=== PATIENT | male | born 1990 | race American Indian/Alaskan Native ===

== ENCOUNTER 2020-06-07 20:06 | Emergency (ER) | payer SELFPAY ==
[2020-06-07] MEDS ORDERED: ZIPRASIDONE MESYLATE 20 MG VIAL IM ONE (21:14)
--- NOTE | 2020-06-07 21:14 | Emergency Department Report ---
ED Psych HPI - General Chief Complaint: Medical Clearance Stated Complaint: PSYCH EVALUATION Time Seen by Provider: 06/07/20 21:01 Source: patient Mode of arrival: Ambulatory Limitations: No Limitations - History of Present Illness Initial Comments: Patient is a 30-year-old male that presents emergency room with complaints of wanting to get checked out. Patient states that his parents thought he was acting weird so he asked him to come to the hospital. Patient states that his parents called the police to bring him to the hospital because of the way he was acting. Patient states that he has been getting close to [facility]. Patient states he has been seeing Myles and reading the Bible. Patient states that he got into a verbal conversation with another patient in the waiting room. Patient states he was cutting the grass and filling in the snakes holes because the snakes holes were present the devil and he was trying to fill them and so that his mom did not fall in the holes. Patient states that he has some electrolytes and took a shower. Patient states that when he came out of the shower the police were magically in his house. Patient states that he lives with his parents. Patient states he been having audio and visual hallucinations. Patient states that he reads a lot and is not much into watching TV because it is too many voices. Patient denies recent travel. Patient denies recent international travel. Patient denies exposure to the novel coronavirus. Patient denies sick contacts. Patient denies fever and chills. Patient denies cough. Patient denies diarrhea. Patient denies coming in contact with anybody with symptoms of the novel coronavirus. MD Complaint: other -: Sudden Associated Psychiatric Symptoms: racing thoughts, auditory hallucinations, visual hallucinations, delusions History of same: No Quality: constant Improves With: none Worsens With: none Context: significant life stressor Associated Symptoms: denies other symptoms. denies: confusion, headache, shortness of breath, nausea, vomiting, syncope, insomnia Treatments Prior to Arrival: none - Related Data Allergies Allergy/AdvReac Type Severity Reaction Status Date / Time No Known Allergies Allergy Unverified 06/07/20 21:05 ED Review of Systems ROS: Stated complaint: PSYCH EVALUATION Other details as noted in HPI Constitutional: denies: chills, fever Eyes: denies: eye pain, eye discharge, vision change ENT: denies: ear pain, throat pain Respiratory: denies: cough, shortness of breath, wheezing Cardiovascular: denies: chest pain, palpitations Endocrine: no symptoms reported Gastrointestinal: denies: abdominal pain, nausea, diarrhea Genitourinary: denies: urgency, dysuria Musculoskeletal: denies: back pain, joint swelling, arthralgia Skin: denies: rash, lesions Neurological: denies: headache, weakness, paresthesias Psychiatric: auditory hallucinations, visual hallucinations. denies: anxiety, depression Hematological/Lymphatic: denies: easy bleeding, easy bruising ED Past Medical Hx - Past Medical History Previous Medical History?: Yes Hx Asthma: Yes - Surgical History Past Surgical History?: No - Family History Family history: no significant - Social History Smoking Status: Current Every Day Smoker Substance Use Type: Marijuana ED Physical Exam - General Limitations: No Limitations General appearance: alert, in no apparent distress - Head Head exam: Present: atraumatic, normocephalic - Eye Eye exam: Present: normal appearance - ENT ENT exam: Present: mucous membranes moist - Neck Neck exam: Present: normal inspection - Respiratory Respiratory exam: Present: normal lung sounds bilaterally. Absent: respiratory distress - Cardiovascular Cardiovascular Exam: Present: regular rate, normal rhythm. Absent: systolic murmur, diastolic murmur, rubs, gallop - GI/Abdominal GI/Abdominal exam: Present: soft, normal bowel sounds - Rectal Rectal exam: Present: deferred - Extremities Exam Extremities exam: Present: normal inspection - Back Exam Back exam: Present: normal inspection - Neurological Exam Neurological exam: Present: alert, oriented X3 - Psychiatric Psychiatric exam: Present: flat affect - Expanded Psychiatric Exam Expanded Focused psych exam: Present: internal stimuli, delusional, flight of ideas, loose associations - Skin Skin exam: Present: warm, dry, intact, normal color. Absent: rash ED Course Vital Signs 06/07/20 06/08/20 06/08/20 21:00 02:29 08:20 Temperature 98.8 F 98.6 F 98.5 F Pulse Rate 81 70 67 Respiratory 16 18 20 Rate Blood Pressure 131/85 138/77 149/84 [Right] O2 Sat by Pulse 97 97 100 Oximetry - Reevaluation(s) Reevaluation #1: Initial evaluation done. Patient placed on ER hold. Patient agrees with plan of care. 06/07/20 21:14 Reevaluation #2: I discussed all results and clinical findings with patient. I discussed plan of care with patient. Patient agrees with plan of care. Patient is medically cleared. Patient will remain in the ER as an ER hold. Patient's final disposition will come from our psychiatry team. 06/07/20 23:47 ED Medical Decision Making - Lab Data Result diagrams: 06/07/20 21:44 06/07/20 21:44 - Medical Decision Making Patient is a 30-year-old male that presents emergency room with psychosis symptoms. Patient having hallucinations and racing thoughts and delusions and paranoia. Patient having tangential thoughts. After initial evaluation, the patient was placed on a ER hold. Patient will require a mental health evaluation. Patient had labs done. Patient's labs are essentially unremarkable. Patient is medically cleared. Patient's final disposition will come from our mental health and psychiatry team. - Differential Diagnosis Acute psychosis, medical clearance for psychiatric admission. Critical care attestation.: If time is entered above; I have spent that time in minutes in the direct care of this critically ill patient, excluding procedure time. ED Disposition Clinical Impression: Acute psychosis, Hypokalemia Disposition: [id number] PSY HOSP/PSY UNIT Is pt being admited?: No Does the pt Need Aspirin: No Condition: Stable Referrals: PRIMARY CARE, [Primary Care Provider] - 2-3 Days Time of Disposition: 23:47
[2020-06-07 21:55] LABS: Basophils # (Auto) 0.1 K/mm3 (0.0-0.1); Basophils % (Auto) 0.7 % (0.0-1.8); Eosinophils # (Auto) 0.1 K/mm3 (0.0-0.4); Eosinophils % (Auto) 0.9 % (0.0-4.3); Hematocrit 43.7 % (35.5-45.6); Lymphocytes # (Auto) 2.6 K/mm3 (1.2-5.4); Lymphocytes % (Auto) 27.5 % (13.4-35.0); Mean Corpuscular HGB Conc 34 % (32-34); Mean Corpuscular Volume 88 fl (84-94); Monocytes # (Auto) 1.1 K/mm3 (0.0-0.8); Monocytes % (Auto) 11.6 % (0.0-7.3); Platelet Count 322 K/mm3 (140-440); Red Blood Count 4.96 M/mm3 (3.65-5.03); Red Cell Distribution Width 13.6 % (13.2-15.2)
[2020-06-07 21:58] LABS: Amphetamine Screen,Urine PRESUMPTIVE NEGATIVE; Benzodiazepines Screen,Urine PRESUMPTIVE NEGATIVE; Cannabinoid Screen,Urine PRESUMPTIVE POSITIVE; Cocaine Screen,Urine PRESUMPTIVE NEGATIVE; Methadone Screen,Urine PRESUMPTIVE NEGATIVE; Opiate Screen,Urine PRESUMPTIVE NEGATIVE
[2020-06-07 21:59] LABS: Bilirubin,Urine NEG (Negative); Blood,Urine NEG (Negative); Color,Urine Yellow (Yellow); Hyaline Casts,Urine 1 /LPF; Mucus,Urine 2+ /HPF; Protein,Urine <15 mg/dL mg/dL (Negative); Urobilinogen,Urine < 2.0 mg/dL (<2.0)
[2020-06-07 22:20] LABS: Alanine Aminotransferase 18 units/L (7-56); Albumin 4.8 g/dL (3.9-5); BUN/Creatinine Ratio 8; Blood Urea Nitrogen 7 mg/dL (9-20); Calcium 10.3 mg/dL (8.4-10.2); Hemolysis Index 4
[2020-06-08 08:21] VITALS: BP 149/84
[2020-06-08] MEDS ORDERED: ZIPRASIDONE MESYLATE 20 MG VIAL IM ONE (11:40)
[2020-06-08] MEDS ORDERED: LORazepam 2 MG/ML VIAL IM ONE (11:40)
--- NOTE | 2020-06-08 12:58 | Consultation ---
History of Present Illness - Reason for Consult Consult date: 06/08/20 Reason for consult: MHE Requesting physician: EUNICE CALLE - History of Present Psychiatric Illness Per ED Provider: Patient is a 30-year-old male that presents emergency room with complaints of wanting to get checked out. Patient states that his parents thought he was acting weird so he asked him to come to the hospital. Patient states that his parents called the police to bring him to the hospital because of the way he was acting. Patient states that he has been getting close to [employer]. Patient states he has been seeing Myles and reading the Bible. Patient states that he got into a verbal conversation with another patient in the waiting room. Patient states he was cutting the grass and filling in the snakes holes because the snakes holes were present the devil and he was trying to fill them and so that his mom did not fall in the holes. Patient states that he has some electrolytes and took a shower. Patient states that when he came out of the shower the police were magically in his house. Patient states that he lives with his parents. Patient states he been having audio and visual hallucinations. Patient states that he reads a lot and is not much into watching TV because it is too many voices. PSYCH HPI Patient seen irritated in hallway way, says I should go look at his chart and not talk to him, patient began walking out of facility. Staff notified. PAST PSYCHIATRIC HISTORY Diagnoses: Suicide attempts or Self-harm behavior: Prior psychiatric hospitalizations: Substance Abuse history: Previous psychiatric medications tried: Outpatient treatment: PAST MEDICAL HISTORY: Family Psychiatric History: None reported or documented SOCIAL HISTORY Marital Status: Living Arrangements: Employment Status: Access to guns/weapons: Education: History of Abuse: Legal History: MENTAL STATUS EXAMINATION General Appearance and Behavior: Age appropriate, good hygiene, wearing appropriate clothes, poor eye contact, uncooperative irritable with questioning. Cooperation: Threatening, and Guarded Psychomotor Behavior: Psychomotor agitation Mood: Affect and affective range: Angry, dysthymic,irritable, Thought Process: , Illogical Thought Content:Illogical Speech: pressured, loud volume Intellectual Functioning: Average Suicidal Ideation: Denies SI Homicidal Ideation: Denies HI Impulse Control: Impaired Insight and Judgment: N Limited insight and judgment Memory: Attention: Divided attention impaired Orientation: Alert, oriented, anxious Diagnoses: Assessment and Plan - Psychiatric problem (1) Behavior concern in adult Current Visit: Yes Status: Acute Treatment Plan MEDICATIONS: Risks, benefits and alternatives of medications discussed with the patient, questions answered and consent obtained from patient. PSYCHOTHERAPY: Supportive psychotherapy provided MEDICAL: Per primary team DELIRIUM PRECAUTIONS: Please re-orient patient frequently, keep lights on during the day, and minimize benzodiazepines and opiates as these medications could wo rsen patient's confusion. Patient walked off prior assessment being completed and not on a 1013 status Thank you for the consult. Please contact with any questions and/or concerns. Medications and Allergies Allergies Allergy/AdvReac Type Severity Reaction Status Date / Time No Known Allergies Allergy Unverified 06/07/20 21:05 Mental Status Exam - Vital signs Last Vital Signs Temp 98.5 F 06/08/20 08:20 Pulse 67 06/08/20 08:20 Resp 20 06/08/20 08:20 BP 149/84 06/08/20 08:20 Pulse Ox 100 06/08/20 08:20 Results Result Diagrams: 06/07/20 21:44 06/07/20 21:44 Abnormal lab results 06/07/20 06/07/20 06/07/20 Range/Units 21:44 21:44 21:44 Brantley % (Auto) 11.6 H (0.0-7.3) % Brantley # 1.1 H (0.0-0.8) K/mm3 Potassium 3.2 L (3.6-5.0) mmol/L Chloride 97.0 L (98-107) mmol/L BUN 7 L (9-20) mg/dL Calcium 10.3 H (8.4-10.2) mg/dL Total Bilirubin 1.70 H (0.1-1.2) mg/dL Total Protein 8.9 H (6.3-8.2) g/dL Salicylates < 0.3 L (2.8-20.0) mg/dL Acetaminophen (10.0-30.0) ug/mL 06/07/20 Range/Units 21:44 Brantley % (Auto) (0.0-7.3) % Brantley # (0.0-0.8) K/mm3 Potassium (3.6-5.0) mmol/L Chloride (98-107) mmol/L BUN (9-20) mg/dL Calcium (8.4-10.2) mg/dL Total Bilirubin (0.1-1.2) mg/dL Total Protein (6.3-8.2) g/dL Salicylates (2.8-20.0) mg/dL Acetaminophen 5.0 L (10.0-30.0) ug/mL All other labs normal. Assessment and Plan - Psychiatric problem (1) Behavior concern in adult Current Visit: Yes Status: Acute
== END 2020-06-08 12:57 ==
LOC: ED 20:06
DX: F23 Brief psychotic disorder (principal); E87.6 Hypokalemia; J45.909 Unspecified asthma, uncomplicated; F17.200 Nicotine dependence, unspecified, uncomplicated; F12.90 Cannabis use, unspecified, uncomplicated; Z79.899 Other long term (current) drug therapy
CPT/HCPCS: 36415; 80053; 80307; 80320; 81001; 85025; G0480